=== PATIENT | male | born 1960 | race Caucasian/White ===

== ENCOUNTER → 2023-09-15 | Outpatient (REF) | payer BC, SELFPAY | LOC: DHSLP | PROVIDERS: ATTENDING PHYSICIAN Internal Medicine Cardiovascular Disease; FAMILY PHYSICIAN Internal Medicine | DX: G47.33 Obstructive sleep apnea (adult) (pediatric) (principal) | CPT/HCPCS: 95800 ==

== ENCOUNTER 2023-10-15 05:59 | Day surgery (SDC) | payer BC, SELFPAY ==
[2023-09-26 08:15] VITALS: BMI 29.3
--- NOTE | 2023-09-26 08:44 | HPS.HSE ---
Family Physician
-
Family Physician: Sean Cruz
Chief Complaint
-
Paroxysmal atrial fibrillation.
History of Present Illness
The patient is a 62 year old male presenting today for paroxysmal atrial fibrillation. The patient is relatively asymptomatic despite this diagnosis. He is currently rate controlled without the use of pharmacological therapy. He has been
complaint with Eliquis for oral anticoagulation due to a CHADS-VASc of 1 (hypertension). His most recent CAM monitor demonstrated a 30% atrial fibrillation burden with an episode lasting greater than 24 hours. Given his high burden of atrial
fibrillation, it is recommended he proceed with pulmonary vein isolation at this time. He denies any current complaints today such as chest pain, shortness of breath, palpitations, nausea, vomiting, diarrhea, lightheadedness, dizziness, cough, sore
throat, or fever.
Medical History
Past Medical History
Past Medical History: Reports Other
Additional Past Medical History:
1. Paroxysmal atrial fibrillation, oral anticoagulation with Eliquis.
2. Hypertension.
3. Hyperlipidemia.
4. Mild aortic regurgitation.
5. Suspected sleep apnea, sleep study results pending.
6. Colon polyps.
7. Diverticulosis.
8. Migraines.
9. Infrequent tobacco use.
Past Surgical History: Reports Other
Additional Past Surgical History:
1. [place] teeth extraction.
2. Colonoscopy x3.
Social History
Tobacco: Other (He reports infrequent cigar smoking. Denies any previous cigarette smoking. )
Alcohol: Other (Social. )
Personal:
Living: Other (He lives with his and daughter in a 2 story home. )
Family History
Family History: Not pertinent
Allergies / Home Medications
Allergy/Medication List:
Home medications: Eliquis 5 mg p.o. twice a day.
Allergies: No known allergies.
Review of Systems
-
A 12 point ROS was completed and negative except as noted: Yes
Physical Exam
Vital Signs
Blood pressure 130/81. Heart rate 70. Respirations 18. Pulse ox 96% on room air.
Height 6 feet, 2.5 inches. Weight 104.8 kg. BMI 29.3.
Physical Exam
General: Well Developed, Well Nourished and No Apparent Distress
HEENT: NormoCephalic, Moist mucous membranes, Atraumatic and PERRLA
Respiratory: Clear
Cardiac: Regular Rhythm
GI: Soft, Non Tender and Non Distended
Musculoskeletal: Normal Gait & Station
Skin: Warm and Dry
Neuro: AO x 3 and Nonfocal/grossly intact
Laboratory Results
-
DIAGNOSTIC STUDIES as of 09/26/2023: White blood cell count 5.7. Hemoglobin 16.2. Platelet count 205,000. PT 13.6. INR 1.06. Sodium 142. Potassium 4.4. BUN 17. Creatinine 0.9. Glucose 88. Calcium 9.8. Magnesium 2.2. AST 23. ALT 26. Albumin 4.7. Type
and screen O positive.
EKG 09/26/2023: Normal sinus rhythm. Possible left atrial enlargement. Possible inferior infarct, age undetermined.
Chest CT 09/26/2023: On the right there is an accessory right middle lobe pulmonary vein. On the left there is a conjoined main left pulmonary vein with single superior and inferior pulmonary veins 2.1 cm from the left atrium. No left atrial filling
defect/thrombus identified.
Echocardiogram 12/06/2022: Ejection fraction is 55-60%. Mildly thickened aortic valve leaflets. Mild aortic regurgitation. Minimal mitral regurgitation.
Impression/Plan
-
IMPRESSION/PLAN:
1. Paroxysmal atrial fibrillation: The patient is in need of pulmonary vein isolation with Dr. Raul Gasca on 10/15/2023. The benefits and risks of the procedure have been explained to the patient. The patient understands these risks and wishes to
proceed. He will not be required to undergo a pre-procedural transesophageal echocardiogram as he has been complaint with his home oral anticoagulation. He is aware to hold his Eliquis the night before and morning of his procedure unless he is
otherwise specified by his surgeon.
[2023-09-26 09:18] LABS: ALT (SGPT) 26 U/L (0-50); AST (SGOT) 23 U/L (17-59); Albumin 4.7 g/dl (3.5-5.0); Alkaline Phosphatase 73 U/L (38-126); Blood Urea Nitrogen 17 mg/dl (9-20); Calcium 9.8 mg/dl (8.4-10.2); Carbon Dioxide 30 mmol/L (22-30); Chloride 103 mmol/L (98-107); Estimated Creatinine Clearance 103 ml/min; Glucose 88 mg/dl (70-99); Magnesium 2.2 mg/dl (1.6-2.3); Potassium 4.4 mmol/L (3.5-5.1); Sodium 142 mmol/L (135-145); Total Bilirubin 0.6 mg/dl (0.2-1.3); Total Protein 7.3 g/dl (6.3-8.2); eGFR > 60.00
[2023-09-26 09:19] LABS: % Basophils 0.4 % (0-2); % Eosinophils 1.1 % (0-6); % Immature Granulocytes 0.9 % (0-0.5); % Lymphocytes 33.5 % (20.5-51.1); % Monocytes 7.7 % (1.7-9.3); % Neutrophils 56.4 % (42.2-75.2); Absolute Eosinophils 0.1 10^3/uL (0-0.7); Absolute Immature Granulocytes 0.1 10^3/uL (0-0.05); Absolute Lymphocytes 1.9 10^3/uL (1.2-3.4); Absolute Monocytes 0.4 10^3/uL (0.1-0.6); Absolute Neutrophils 3.2 10^3/uL (1.4-6.5); Hematocrit 47.6 % (39.0-52.0); Hemoglobin 16.2 g/dL (13.0-18.0); Mean Corpuscular Hgb 31.2 pg (27.0-31.0); Mean Corpuscular Volume 91.7 fL (80.0-94.0); Mean Platelet Volume 9.2 fL (7.4-10.4); Nucleated Red Blood Cells % 0 % (-); Platelet Count 205 10^3/uL (130-400); Red Blood Cell Count 5.19 10^6/uL (4.70-6.10); Red Cell Dist. Width 12.1 % (11.5-14.5); White Blood Cell Count 5.7 10^3/uL (4.8-10.8)
[2023-09-26 09:27] LABS: INR 1.06; PT 13.6 Sec (11.4-14.6)
[2023-10-15] VITALS (9 sets, daily range): BP systolic 98–138; BP diastolic 60–104; BMI 28.8
--- NOTE | 2023-10-15 07:31 | ITS.CL.ABL ---
Regrader - Ablation
Ablation
Procedure Report:
Primary Care Physician: Sean Cruz MD
Procedure Date: 10/15/2023
Patient History:
Patient is a pleasant 62 year old male with a past medical history significant for hypertension, hyperlipidemia, and symptomatic PAF.
See H&P for complete details.
Indication:
Symptomatic PAF
Arrhythmia Specific History:
Prior Medical Therapies for Rate and Rhythm Control:
[ ] Beta-rush
[ ] Calcium channel-rush
[ ] Amiodarone
[ ] Dronederone
[ ] Sotalol
[ ] Flecainide
[ ] Dofetilide
[ ] Options limited by bradycardia
[ ] Options limited by comorbid renal disease
Prior Procedural Therapies for AF/AFL:
[ ] Cardioversion
[ ] Pulmonary Vein Isolation
[ ] Posterior Wall Isolation
[ ] Additional lines (Specify)
[ ] Surgical Orr-MAZE or PVI (Specify)
Procedure Performed:
X AF ablation procedure (59899) -- includes LA/CS pacing, trans-septal, 3D mapping, + ICE
[ ] +IV drug (96529)
[ ] +Other Arrhythmia (50461)
[ ] +Other AF Line/ablation (51184)
Risks and expected recovery has been explained in detail. Alternative options have been explored, and in a shared-decision making fashion we have decided that this was the most appropriate procedure.
Method
NPO status confirmed. Grounding pad applied. Defibrillator pads applied. Continuous surface ECG, pulse oximetry, and blood pressure were monitored. Procedure was performed under general anesthesia, with anesthesia services.
Both groins were clipped, prepped with Chloraprep, and draped in sterile fashion. Time out was called. Local anesthesia administered with bupivacaine. The right and left femoral veins were accessed for catheter placement, using ultrasound guidance,
micro-puncture needle/wire, and modified seldinger technique. 3 sheaths were placed. The following catheters were used:
[ ] Tacticath SE (D/F Curve) ablation catheter
X Viewflex 9Fr ICE catheter
[ ] Inquiry decapolar 6Fr diagnostic catheter
[ ] CRD Hex 6Fr
[ ] Arctic Front Advance Cryoballoon ([ ]28mm[ ]23mm)
[ ] Achieve Advance mapping catheter ([ ]15mm[ ]20mm)
X FlexCath Contour 12 Fr with PulseSelect PFA Catheter
X Advisor HD Grid Mapping Catheter, SE
[ ] Acuson AcuNav 8 Fr ICE catheter
[ ]Other: [ ]
Intracardiac ultrasound (ICE) was carefully advanced into the right atrium to guide sheath placement over a J-wire, catheter placement, guide trans-septal puncture, identify potential complications, identify anatomic structures and ensure proper
contact between ablation catheter and tissue.
Heparin was given prior to trans-septal puncture. Heparin was given to achieve and maintain a target ACT of 300-400 seconds throughout the procedure.
Trans-septal access was performed under ICE guidance. The trans-septal puncture was performed with a SafeSept wire through a Brockenbrough needle assembly through the steerable sheath. The wire was visualized as it entered the LSPV and system
advanced under ICE guidance and fluoroscopy into the LA. The Brockenbrough needle assembly, SafeSept wire and sheath dilator were removed under negative pressure. LA pressure was measured and recorded.
ICE and 3D mapping was performed to identify relevant cardiac structures. A careful 3D map was created to assess for regions of low-voltage and abnormal electrogram signals using HD grid mapping catheter and PulseSelect catheter. Additional mapping
was performed as outlined below.
Prior to ablation, glycopyrrolate was provided. PulseSelect catheter was advanced over J-wire to the ostium of each vein. Pulmonary vein isolation was performed with ostial and antral lesions in a circumferential manner. Contact was visualized via
EAM, ICE, fluoroscopy, and EGM signals. Following completion of ablation lesions, a post-ablation voltage/activation map was performed in sinus rhythm. Entrance and exit block were confirmed for each vein.
Catheter and sheath were removed from the left atrium and post-ablation intracardiac echo evaluation was consistent with pre-ablation with no changes and no pericardial effusion and there is no left atrial thrombus or left ventricle thrombus seen.
Electrophysiology study was performed. Hemostasis was obtained with Vascade for each sheath and with manual pressure. Protamine was used for reversal.
Estimated Blood Loss
5-10 mL
Complications
None
Fluoroscopy: 13.7 minutes; 52.95 mGy; DAP 6.92
Baseline Intervals:
Rhythm: SR
SD: 138 ms
QRS: 95 ms
QT: 382 ms
QTc:435 ms
A-A: 770 ms
R-R: 770 ms
Post-Procedure Intervals:
SD: 164 ms
QRS: 95 ms
QT: 382 ms
QTc: 431 ms
AVWB: 440 ms
AVERP: 600/350 ms; AERP 600/210; noted jump no echo or inducible arrhythmia
Recommendations
- Bedrest with straight-leg precautions as ordered
- Anticipate same day discharge if patient meeting clinical metrics
- Resume home medications as indicated
- Ok to resume anticoagulation tonight if patient and groin sites stable
- PPI daily for 30 days
- Plan for follow-up in office in 4-6 weeks
Raul Gasca DO
Clinical Cardiac Obstetric Anaesthetist
cc: Sean Cruz MD
[2023-10-15 08:43] LABS: ACT-LR - POC 261 Seconds (116-155)
[2023-10-15 09:01] LABS: ACT-LR - POC 340 Seconds (116-155)
[2023-10-15 09:26] LABS: ACT-LR - POC 384 Seconds (116-155)
[2023-10-15 09:27] LABS: ACT-LR - POC < 68 Seconds (116-155)
[2023-10-15 10:09] LABS: ACT-LR - POC 363 Seconds (116-155)
[2023-10-15 10:23] LABS: ACT-LR - POC 155 Seconds (116-155)
[2023-10-15] MEDS: TYLENOL 650 MG PO (11:41)
--- NOTE | 2023-10-15 13:13 | W.PN.UPDATE ---
Update Note
Progress Note Update
62 yo WM s/p PVI/PFA (same day). He feels ok, no cp, sob, blu diet, voiding, EKG SR, b/l groins closed with VASCADE, R groin with some drainage, soft, NT. He does c/o scrotal discomfort 'squeezing' feeling, possibly from lying flat most of day, will
monitor at home. He will continue OAC Eliquis at 5pm tonight. We will add PPI for 30 days. Activity restrictions reviewed as well as the pillars of Afib. He thinks he may have sleep apnea awaiting sleep study results. He will f/u Dr. Gasca in 2 mo.
He is for d/c home after 130p if groins remain stable.
[2023-10-15 13:28] LABS: ACT-LR - POC > 397 Seconds (116-155)
== END 2023-10-15 13:45 | disposition home or self-care (01) ==
LOC: CATH 05:59
PROVIDERS: ATTENDING PHYSICIAN Internal Medicine Cardiovascular Disease; FAMILY PHYSICIAN Internal Medicine
DX: I48.0 Paroxysmal atrial fibrillation (principal); Z79.01 Long term (current) use of anticoagulants; I10 Essential (primary) hypertension; E78.5 Hyperlipidemia, unspecified; I08.0 Rheumatic disorders of both mitral and aortic valves; F17.290 Nicotine dependence, other tobacco product, uncomplicated; G43.909 Migraine, unspecified, not intractable, without status migrainosus
CPT/HCPCS: C1732; C1760; C1894; C1733; C1769; C1892; 36415; 75572; 76937; 80053; 83735; 85025; 85347; 85610; 86850; 86900; 86901; 93005; 93656; Q9967